=== PATIENT | female | born 1985 | race Caucasian/White ===

== ENCOUNTER → 2017-02-10 | Outpatient (CLI) | payer BC, OTHER ==
[~2017-02-10] MED LIST: MULT-506 PO; OXYC-57 PO
== END | disposition home or self-care (01) ==
LOC: C.LABSPEC 12:48
PROVIDERS: ATTEND Physician Assistant
DX: N63 Unspecified lump in breast (principal); L29.8 Other pruritus

== ENCOUNTER → 2017-02-10 | Outpatient (CLI) | payer BC | END | disposition home or self-care (01) | LOC: C.PAPS 10:18 | PROVIDERS: ATTEND Physician Assistant | DX: Z01.419 Encounter for gynecological examination (general) (routine) without abnormal findings (principal); R87.612 Low grade squamous intraepithelial lesion on cytologic smear of cervix (LGSIL) ==

== ENCOUNTER → 2017-02-23 | Outpatient (CLI) | payer BC ==
--- NOTE | 2017-02-23 12:46 | MAMMOGRAPHY REPORT ---
UNILATERAL LEFT DIGITAL DIAGNOSTIC MAMMOGRAM TOMOSYNTHESIS WITH CAD AND TARGETED LEFT ULTRASOUND: 02/23 CLINICAL HISTORY: 31-year-old woman whose provider felt a lump in the left breast on recent physical exam. The location is 8 to 9:00, 2cm from the nipple. Patient was unable to feel the lump herself. No skin changes or nipple discharge. Family history of breast cancer = grandmother. TECHNIQUE: Left breast tomosynthesis in addition to standard 2D mammography was performed. Current st udy was also evaluated with a Computer Aided Detection (CAD) system. COMPARISON: No prior exams were available for comparison. BREAST COMPOSITION: The tissue of the left breast is extremely dense, which lowers the sensitivity o f mammography. FINDINGS: No obvious mass, architectural distortion or cluster of microcalcifications is seen. Targeted ultrasound was performed in the 8:30 left breast, 2 cm from the nipple and also in the 8:00, 9:00 and retroareolar axes of the left breast. On palpation, there is a firm 1-2 cm ridge in the ar ea described. Normal dense glandular tissue is seen without a discrete solid or cystic mass. IMPRESSION: ACR BI-RADS CATEGORY 1: NEGATIVE, TARGETED ULTRASOUND ACR BI-RADS CATEGORY 1: NEGATIVE There is no mammographic or targeted sonographic evidence of malignancy. No suspicious mammographic or sonographic abnormality to explain the palpable lump in the 8:30 left breast. Therefore, clinical follow-up is recommended, as biopsy of a clinically suspicious mass should not be precluded by negat ashley imaging. These results and recommendations were discussed with the patient at the time of the exam. Approximately 10% of breast cancers are not detected with mammography. A negative mammographic report should not delay biopsy if a clinically suggestive mass is present. Mickie Ferraro M.D. ay/:02/23/2017 09:06:29 [employer]: Paola CASTANEDA)(Viv), [facility] letter sent: Normal 1/2 BI-RADS Code: ACR BI-RADS Category 1: Negative Ultrasound BI-RADS: ACR BI-RADS Category 1: Negative
== END | disposition home or self-care (01) ==
LOC: C.MAMM 08:38
PROVIDERS: ATTEND Physician Assistant
DX: N63 Unspecified lump in breast (principal)

== ENCOUNTER → 2017-04-07 | Outpatient (CLI) | payer BC | END | disposition home or self-care (01) | LOC: C.PATHSPEC 13:24 | PROVIDERS: ATTEND Obstetrics & Gynecology | DX: R87.613 High grade squamous intraepithelial lesion on cytologic smear of cervix (HGSIL) (principal) ==

== ENCOUNTER → 2017-05-06 | Outpatient (CLI) | payer BC, OTHER ==
[2017-05-06 18:01] LABS: BASO % 0.2 %; BASO ABS # 0.01 K/uL (0-0.2); COMPLETE YES; EOS % 1.4 %; HEMATOCRIT 37.5 % (37-47); IG% 0.2 %; LYMPH % 34.3 %; LYMPH ABS # 1.69 K/uL (1.2-3.4); MEAN CELL VOLUME 87.2 fL (80-100); MEAN CORPUSCULAR HEMOGLOBIN 29.5 pg (25-34); MEAN CORPUSCULAR HGB CONC 33.9 g/dl (32-36); MEAN PLATELET VOLUME 11.4 fL (7.4-10.4); MONO % 12.8 %; NEUT % 51.1 %; PLATELET COUNT 146 K/uL (130-400); WHITE BLOOD COUNT 4.92 K/uL (4.8-10.8)
== END | disposition home or self-care (01) ==
LOC: C.LAB 17:30
PROVIDERS: ATTEND Obstetrics & Gynecology
DX: Z01.818 Encounter for other preprocedural examination (principal); D06.9 Carcinoma in situ of cervix, unspecified

== ENCOUNTER → 2017-05-12 | Day surgery (SDC) | payer BC, OTHER ==
[2017-04-20 10:24] VITALS: Ht 170.2 cm; Wt 56.4 kg
--- NOTE | 2017-04-20 13:21 | HISTORY & PHYSICAL EXAMINATION ---
DATE OF ADMISSION: 05/12/2017 ADMITTING DIAGNOSES: 1. Severe cervical dysplasia of the cervix. 2. 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 ADMISSION HISTORY: The patient is a 31-year-old 0 who is admitted for a LEEP excision of her cervical transformation zone as well as vaginal ablation of vaginal condylomata. The patient was seen by me last month for colposcopic examination of the cervix. Her initial Pap smear was at age 31 and this came back showing LGSIL changes. Colposcopic examination of the cervix showed a lesion consistent with high-grade cervical dysplasia. Cervical biopsy showed ELIGIO 2 and ELIGIO 3. Also noted at the time of colposcopy were multiple condyloma at the vaginal apex which was confirmed by biopsy. Treatment options were discussed with the patient and she has been admitted for the above listed procedure. PAST MEDICAL HISTORY: OB: Nulligravida. RN BURN: As above. MEDICAL: None. SURGICAL: None. ALLERGIES: SULFA DRUGS. SOCIAL HISTORY: No smoking. FAMILY HISTORY: Noncontributory. REVIEW OF SYSTEMS: As per HPI. ADMISSION PHYSICAL EXAMINATION: GENERAL: Today shows a pleasant female in no acute distress. VITAL SIGNS: Blood pressure 112/78, height of 5 feet 7 inches and weight of 123 pounds. HEAD, EYES, EARS, NOSE, AND THROAT EXAMINATION: Unremarkable. NECK: Supple. LUNGS: Clear. HEART: With a regular rhythm and rate. ABDOMEN: Soft, nontender. PELVIC EXAMINATION: Shows normal external genitalia. Vaginal vault is pink and rugated. Cervical os is closed. Bimanual examination shows an anterior mobile uterus. Adnexa show no palpable masses. RECTAL EXAMINATION: Confirmatory. EXTREMITY EXAMINATION: Shows no deep calf tenderness. NEUROLOGIC EXAMINATION: Grossly intact. IMPRESSION: A 31-year-old 0, severe cervical dysplasia of the cervix with vaginal condyloma for LEEP excision of transformation zone and laser vaginal ablation. PLAN: Risks, benefits and alternatives to the surgery have been discussed. While the benefits will be removal of the transformation zone as well as ablation of vaginal condylomata, the risks are bleeding, infection, inadvertent injury to internal organs requiring initial surgery and treatment, failure to remove all dysplastic tissue, and recurrence of the problem. The patient understands this. Permit has been signed and she wishes to proceed.
[~2017-05-12] VITALS: Ht 170.2 cm; Wt 56.4 kg
[~2017-05-12] MED LIST changes: +ACETIC ACID 4% (WHITE VINEGAR) 30ML ONE; +ATROPINE SULFATE 0.1 MG/ML 5ML SYR IV PRN; +DEXAMETHASONE SOD INJ 4 MG/ML VIAL IV PRN; +DEXAMETHASONE SOD INJ 4 MG/ML VIAL ONE; +EpHEDrine SULFATE INJ 50 MG/ML AMP IV PRN; +FENTANYL CITRATE INJ 50 MCG/1 ML 2 ML VIAL IV PRN; +FENTANYL CITRATE INJ 50 MCG/1 ML 2 ML VIAL ONE; +FERRIC SUBSULFATE 8 GM VIAL ONE; +IBUPROFEN 600 MG TAB PO PRN; +IODINE SOLN STRONG 14 ML ONE; +KETOROLAC TROMETHAMINE 30 MG/ML VIAL IV. PRN; +KETOROLAC TROMETHAMINE 30 MG/ML VIAL ONE; +LABETALOL HCL IV 5 MG/ML 20ML IV PRN; +LACTATED RINGER'S 1000ML 1,000 ML IV SCH; +LIDOCAINE HCL 2% 2 ML VIAL (20MG/ML) ONE; +LIDOCAINE/EPINEPHRINE 1% INJ 50 ML VIAL ONE; +METOCLOPRAMIDE HCL INJ 5 MG/ML 2 ML VIAL IV PRN; +MIDAZOLAM HCL 1 MG/ML 2ML VIAL ONE; +MoRPHine SULFATE 10 MG/ML CARP/VIAL IV PRN; +ONDANSETRON INJ 2 MG/ML 2 ML VIAL IV PRN; +ONDANSETRON INJ 2 MG/ML 2 ML VIAL ONE; +OXYCODONE/ACETAMINOPHEN 5-325 TAB PO PRN; +PHENYLEPHRINE 100MCG/ML 5ML SYR IV PRN; +PROPOFOL IV EMULSION 10 MG/ML 20 ML VIAL IV ONE; +SODIUM CHLORIDE 0.9% 1000ML 1,000 ML IV SCH
--- NOTE | 2017-05-12 12:01 | History & Physical Bridge - SC ---
H&P Re-Evaluation Bridge Note: I have examined the patient, reviewed the History & Physical and in the interval since the performance of the History & Physical I have noted the following changes of clinical significance: No changes noted
--- NOTE | 2017-05-12 12:38 | Medical Student: [facility] ---
Immediate Operative Summary Operative Date May 12, 2017. Pre-Operative Diagnosis Severe cervical dysplasia of cervix. Vaginal intraepithelial neoplasm G1 Post-Operative Diagnosis same Procedure(s) Performed Loop Electrosurgical Excision Procedure of transformation zone with Laser ablation of vaginal condyloma Surgeon Dr. Barber Vacuum Metalizing Supervisor Surgeon(s) None Estimated Blood Loss Minimal Findings Atypia consistent with high grade dysplasia seen on cervical surface along transformation zone. Multiple condyloma of vaginal apex and mendoza along left lateral side wall. Fluids (cc crystalloids) 80mL Specimens 1. Ectocervix 2. Endocervix Drains None Anesthesia General Complication(s) None Disposition Recovery Room / PACU
--- NOTE | 2017-05-12 12:40 | [facility] Post Operative Brief Note ---
Immediate Operative Summary Operative Date May 12, 2017. Pre-Operative Diagnosis 1) Severe cervical dysplasia of the cervix. 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 Barber Television Newscast Director Surgeon(s) None Estimated Blood Loss Minimal Findings Colposcopic examination of the cervix showed demarcated TZ. Extensive condyloma of left lateral fornix and left pelvic sidewall LEEP procedure performed with ectocervical and endocervical specimens. Laser ablation of vaginal warts, using a defocused beam at 20 peraza. Fluids (cc crystalloids) 800 Specimens A. Ecto cervical LEEP specimen B. Endo cervical LEEP Specimen Drains Snyder to gravity Anesthesia General Complication(s) None Disposition Recovery Room / PACU
--- NOTE | 2017-05-12 12:50 | Discharge Instructions-SurgCtr ---
Discharge Instructions Date of Service May 12, 2017. Visit Reason for Visit: Severe Dysplasia Cervix, Vaginal Intraepithelial Discharge Discharge Diagnosis / Problem: same Discharge Goals Goal(s): Therapeutic intervention Activity Recommendations Activity Limitations: as noted below Anesthesia . Post Anesthesia Instructions: If you have had General Anesthesia or IV Sedation: * Do not drive today. * Resume driving when surgeon permits. * Do not make important decisions or sign legal documents today. * Call surgeon for: 1. Temperature elevations greater than 101 degrees F. 2. Uncontrollable pain. 3. Excessive bleeding. 4. Persistent nausea and vomiting. 5. Medication intolerance (nausea, vomiting or rash). * For nausea and vomiting use only clear liquids such as: tea, soda, bouillon until nausea subsides, then gradually increase diet as tolerated. * If you have any concerns or questions, call your surgeon's office. If physician is unavailable and it is an emergency, call 911 or go to the nearest emergency room. . Instructions / Follow-Up Instructions / Follow-Up ACTIVITY RECOMMENDATIONS: * Avoid tampons, douching, hot tubs, pools, and intercourse until bleeding has stopped. * May shower as usual. * No strenuous activity for 24-48 hours. After 24-48 hours, you may do anything you feel like doing (driving and sports are okay). SPECIAL CARE INSTRUCTIONS: Special Diet: * Mild nausea may occur in the immediate post-operative period. * Take clear liquids such as tea, cola or bouillon until all nausea has subsided; you may then resume your normal diet. Special Care: * Light bleeding and vaginal spotting can last from a few days to 3-4 weeks. Call your doctor if bleeding becomes heavier than the heaviest part of your period. * Check your temperature twice a day for one week. If it goes above 100.4 degrees Fahrenheit (38.0 Celsius), notify your doctor. * Call your doctor's office for an appointment for 2 weeks after your surgery. FOLLOW-UP VISIT: Call your doctor's office for an appointment for 2 weeks after your surgery. Diet Recommendations Home Diet: resume previous diet Procedures Procedures Performed: 1) Loop electrosurgical excision procedure, 2) laser ablation of vaginal condyloma Pending Studies Studies pending at discharge: yes List of pending studies: Pathology Medical Emergencies . Who to Call and When: Medical Emergencies: If at any time you feel your situation is an emergency, please call 911 immediately. . Non-Emergent Contact Non-Emergency issues call your: Protector Plate Attacher Call Non-Emergent contact if: you have a fever, temperature is above 100.5, your pain is not controlled, your pain is worsening . . "Provider Documentation" section prepared by Lul Barber. .
--- NOTE | 2017-05-12 12:59 | OPERATIVE REPORT ---
DATE OF OPERATION: 05/12/2017 PREOPERATIVE DIAGNOSES: 1. Severe cervical dysplasia. 2. Extensive vaginal condylomata. POSTOPERATIVE DIAGNOSIS: Same. PROCEDURE PERFORMED: 1. LEEP excision of the transformation zone. 2. Ablation of vaginal condyloma. SURGEON: Dr. Barber. ANESTHESIA: General. FINDINGS: Colposcopic examination of the cervix shows a well demarcated transformation zone with areas of dysplasia along the left lateral side wall and left apex of the vagina extensive condyloma. A LEEP excision of the transformation zone performed to a total depth of approximately 1.5 cm with an ectocervical and endocervical specimen, laser ablation of vaginal condylomata with a defocused laser beam at 20 peraza. PROCEDURE IN DETAIL: The patient was taken to the operating room and after general anesthesia, was placed in dorsolithotomy position and draped and prepped in the usual fashion. Colposcopic examination of the cervix and vagina was performed with 1% acetic acid with description as above. The cervix and the vaginal mucosa was then cleansed with Betadine. The cervix was injected with a 1% lidocaine solution with epinephrine. A LEEP excision of the transformation zone was then performed with an ectocervical and endocervical technique to a total depth of 1.5 cm. Specimen sent separately. Edges of the ectocervical margin cauterized as well as the LEEP bed. Hemostasis present. The laser was then hooked to the microscope and the vagina was again inspected with the microscope. The laser beam was set at 20 peraza with a defocused large bead and tested with adequate burn. The condyloma under direct guidance from the microscope were cauterized to the base of the condylomata and not extensively into the vaginal mucosa. All visible condylomata were cauterized. Hemostasis was present. The patient was taken out of dorsal lithotomy into recovery room in satisfactory condition. I attest to the content of the Intraoperative Record and any orders documented therein. Any exception s are noted below.
[2017-05-12 13:22] VITALS: TEMP 37.2
--- NOTE | 2017-05-12 13:40 | Anesthesia Progress Nt - [facility] ---
Anesthesia Post Op Note Date & Time May 12, 2017 at 13:40 Vital Signs Pain Intensity: 0 Vital Signs Past 12 Hours Date Time Temp Pulse Resp B/P (MAP) Pulse Ox O2 Delivery O2 Flow Rate FiO2 05/12/17 13:22 37.2 75 16 116/77 (90) 100 Room Air 05/12/17 13:15 112/72 05/12/17 13:13 36.9 74 12 112/72 100 Room Air 05/12/17 13:12 89 14 05/12/17 13:12 88 14 100 05/12/17 13:10 104/63 05/12/17 13:07 81 20 100 05/12/17 13:07 84 20 05/12/17 13:05 110/71 05/12/17 13:02 88 15 100 05/12/17 13:02 89 15 05/12/17 13:00 107/64 05/12/17 12:57 98 17 100 05/12/17 12:57 97 17 05/12/17 12:55 115/66 05/12/17 12:52 112 25 100 05/12/17 12:52 113 25 05/12/17 12:51 127/71 05/12/17 12:47 112 17 100 05/12/17 12:47 113 17 05/12/17 12:45 116/69 05/12/17 12:42 95 18 05/12/17 12:42 94 18 100 05/12/17 12:40 83/54 05/12/17 12:38 92/53 05/12/17 12:37 67 99 05/12/17 12:37 67 05/12/17 12:37 36.5 65 16 92/53 99 Mask 6 05/12/17 10:39 36.9 92 16 110/81 (91) 100 Room Air Notes Mental Status: alert / awake / arousable, participated in evaluation Pt Amnestic to Procedure: Yes Nausea / Vomiting: adequately controlled Pain: adequately controlled Airway Patency, RR, SpO2: stable & adequate BP & HR: stable & adequate Hydration State: stable & adequate Anesthetic Complications: no major complications apparent
[2017-05-12 13:47] VITALS: BP 105/70; PULSE 66; O2SAT 100
== END | disposition home or self-care (01) ==
LOC: X.SURG 10:30
PROVIDERS: ATTEND Obstetrics & Gynecology
DX: R87.613 High grade squamous intraepithelial lesion on cytologic smear of cervix (HGSIL) (principal); A63.0 Anogenital (venereal) warts

== ENCOUNTER → 2017-11-25 | Outpatient (CLI) | payer BC, OTHER ==
[~2017-11-25] MED LIST changes: -ACETIC ACID 4% (WHITE VINEGAR) 30ML ONE; -ATROPINE SULFATE 0.1 MG/ML 5ML SYR IV PRN; -DEXAMETHASONE SOD INJ 4 MG/ML VIAL IV PRN; -DEXAMETHASONE SOD INJ 4 MG/ML VIAL ONE; -EpHEDrine SULFATE INJ 50 MG/ML AMP IV PRN; -FENTANYL CITRATE INJ 50 MCG/1 ML 2 ML VIAL IV PRN; -FENTANYL CITRATE INJ 50 MCG/1 ML 2 ML VIAL ONE; -FERRIC SUBSULFATE 8 GM VIAL ONE; -IBUPROFEN 600 MG TAB PO PRN; -IODINE SOLN STRONG 14 ML ONE; -KETOROLAC TROMETHAMINE 30 MG/ML VIAL IV. PRN; -KETOROLAC TROMETHAMINE 30 MG/ML VIAL ONE; -LABETALOL HCL IV 5 MG/ML 20ML IV PRN; -LACTATED RINGER'S 1000ML 1,000 ML IV SCH; -LIDOCAINE HCL 2% 2 ML VIAL (20MG/ML) ONE; -LIDOCAINE/EPINEPHRINE 1% INJ 50 ML VIAL ONE; -METOCLOPRAMIDE HCL INJ 5 MG/ML 2 ML VIAL IV PRN; -MIDAZOLAM HCL 1 MG/ML 2ML VIAL ONE; -MoRPHine SULFATE 10 MG/ML CARP/VIAL IV PRN; -ONDANSETRON INJ 2 MG/ML 2 ML VIAL IV PRN; -ONDANSETRON INJ 2 MG/ML 2 ML VIAL ONE; -OXYCODONE/ACETAMINOPHEN 5-325 TAB PO PRN; -PHENYLEPHRINE 100MCG/ML 5ML SYR IV PRN; -PROPOFOL IV EMULSION 10 MG/ML 20 ML VIAL IV ONE; -SODIUM CHLORIDE 0.9% 1000ML 1,000 ML IV SCH
== END | disposition home or self-care (01) ==
LOC: C.PAPS 18:08
PROVIDERS: ATTEND Obstetrics & Gynecology
DX: D06.9 Carcinoma in situ of cervix, unspecified (principal); R87.610 Atypical squamous cells of undetermined significance on cytologic smear of cervix (ASC-US)

== ENCOUNTER 2024-05-28 04:07 | Inpatient (IN) ==
[2024-05-28] MEDS: OXYTOCIN 30 UNITS/NSS 30 UNITS/500 ML BAG IV PRN (04:11)
[2024-05-28] MEDS ORDERED: LIDOCAINE 1% LOCAL 20 ML VIAL INFIL PRN (04:22)
[2024-05-28] MEDS ORDERED: LACTATED RINGER'S 1,000 ML IV PRN (04:22)
--- NOTE | 2024-05-28 04:32 | Delivery Summary ---
Vaginal Delivery Summary Date of Service May 28, 2024 Vaginal Delivery Summary (s/p delivery and placenta) PREOPERATIVE DIAGNOSIS: 1. Single intrauterine at 38 3/7 2. A1GDM 3. GBS+ 4. AMA 5. s/p en route in car POSTOPERATIVE DIAGNOSIS: 1. Single intrauterine at 38 3/7 2. A1GDM 3. GBS+ 4. AMA 5. s/p en route in car 6. Delivered PROCEDURE: 1. Examination status post normal spontaneous vaginal delivery and delivery of placenta SURGEON: Susie Graves MD ANESTHESIA: None COMPLICATIONS: None. CONDITION: Stable. INDICATIONS: 38 yo at 38 3/7 wga called with c/o contractions rapidly worsening in frequency and intensity and recommended to come to the hospital. On their way to the hospital, they called EMS as she felt like she was delivering and proceeded to deliver in her car. EMS arrived shortly after and reported mom and baby stable. As they arrived to hospital, placenta delivered spontaneously as well. FINDINGS: A viable female infant, weight pending, unknown apgars SPECIMEN: Placenta OPERATIVE REPORT: IV oxytocin was given for excellent hemostasis. Vagina, cervix, perineum, and placenta were inspected. A hemostatic right introitus abrasion and clitoral abrasion were noted and did not need repair. Placenta appeared intact. Sponge counts correct x2. No sponges were left behind. Mother and stable in immediate period. [facility] Vaginal Delivery Charge Delivery Type Details: (s/p delivery and placenta)
[2024-05-28] MEDS ORDERED: HYDROCORTISONE ACETATE 25 MG SUPP PR PRN (04:40)
[2024-05-28] MEDS ORDERED: BENZOCAINE 20% SPRY 85 APPLN/85 GM CAN EXT PRN (04:40)
[2024-05-28] MEDS ORDERED: OXYTOCIN 30 UNITS/NSS 30 UNITS/500 ML BAG IV PRN (04:40)
[2024-05-28] MEDS: IBUPROFEN 600 MG TAB PO ONE (04:43)
[2024-05-28 04:58] LABS: Hematocrit (blood only) 31.1 % (37.0-47.0); Mean Corpuscular Hemoglobin 27.2 pg (25.0-34.0); Mean Corpuscular Hgb Conc 32.2 g/dL (32.0-36.0); Mean Corpuscular Volume 84.5 fL (80.0-100.0); Mean Platelet Volume 12.1 fL (9.4-12.4); Platelet Count 167 K/uL (130-400); RDW Coefficient of Variation 13.7 % (11.5-14.5); RDW Standard Deviation 42.6 fL (36.4-46.3); Red Blood Count 3.68 M/uL (4.20-5.40); White Blood Count 8.65 K/ul (4.8-10.8)
[2024-05-28] MEDS: FERROUS SULFATE 325 MG TAB PO SCH (08:42)
[2024-05-28] MEDS: PRENATAL VITAMIN 1 TAB PO SCH (08:42)
[2024-05-28] MEDS: DOCUSATE SODIUM 100 MG CAP PO SCH (08:42)
[2024-05-28] MEDS: IBUPROFEN 600 MG TAB PO PRN (10:52)
[2024-05-28] MEDS: DIPHTHER/TETAN/PERTUS Vaccine (Tdap, Adol/Adult) 0.5mL IM ONE (11:54)
[2024-05-28] MEDS: ACETAMINOPHEN 325 MG TAB PO PRN (18:08)
[2024-05-28 22:22] VITALS: O2SAT 97
--- NOTE | 2024-05-29 05:14 | Obstetrical Progress Note ---
Date of Service May 29, 2024 Assessment & Plan (1) LGA (large for gestational age) fetus affecting mother, antepartum: (2) Carrier of group B Streptococcus: (3) Encounter for supervision of normal in multigravida: Plan Pt is a 38 yo post- day 1 s/p at 38w3d. complicated by GBS pos and diet controlled GDM. Encourage breast feeding and ambulation Monitor vitals and Hgb Upon hospital discharge, pt to follow up with Dr. Graves in 6 weeks Admission and Anticipated Discharge Date Admission Date: May 28, 2024 Supervising Physician Co-Signing Physician Notes Resident Physician Supervision Note: I interviewed and examined the patient. Discussed with Dr. Montoya and agree with findings and plan as documented in the note. Any exceptions or clarifications are listed here: Stable for dc Documented By: Susie Graves MD Subjective Pt is a 38 yo post- day 1 s/p at 38w3d. complicated by GBS pos and diet controlled GDM Ambulation:In room Voiding:voiding normally Passing gas: yes BM: yes Diet tolerance:regular diet Lochia:bloody, no clots Feeding type: breast Current pain level: 0-4/10 improved with ibuprofen Resting comfortably this morning in NAD. Denies SANDERS, CP, SOB, N/V/D, LE pain/swelling. Review of Systems Review of Systems: As per HPI Physical Exam Constitutional: WD/WN, vitals as above Respiratory: normal respiratory effort, lungs clear to auscultation Gastrointestinal (Abdomen): normal bowel sounds, soft, nontender, no hepatosplenomegaly Uterine fundus firm and at 1-2 cm below umbilicus Neurologic: PERRL, EOMI, accommodation nl, no face palsy, no dysarthria Moving all 4 extremities on command Psychiatric: A+Ox3, euthymic affect Results & Data Vital Signs (Past 12 Hours) Vital Signs Temp Pulse Resp BP BP Pulse Ox O2 Del Method 05/29/24 03:10 36.3 C L 83 18 123/83 97 Room Air 05/28/24 22:51 36.6 C 84 16 100/69 97 Room Air 05/28/24 19:15 36.6 C 83 16 115/78 97 Room Air
[2024-05-29 07:57] VITALS: PULSE 76; RESP 16; TEMP 98.6
[2024-05-29 10:19] VITALS: BP 123/83
[2024-05-29] MEDS ORDERED: bisacodyL 5 MG TABEC PO SCH (20:00)
[2024-05-30] MEDS ORDERED: bisacodyL 10 MG SUPP PR PRN
== END 2024-05-29 14:00 | disposition home or self-care (01) | DRG 776 ==
LOC: 4S1 04:07 → 4E1 09:13